=== PATIENT | female | born 1985 | race Caucasian/White ===

== ENCOUNTER 2016-10-28 15:33 | Inpatient (IN) | payer OTHER ==
[~2016-10-28] VITALS: Ht 170.2 cm; Wt 67.6 kg
[2016-10-28 15:40] VITALS: BP 138/82
--- NOTE | 2016-10-28 16:04 | NUR ---
Patient ambulated back to lobby from XRAY with tech.
--- NOTE | 2016-10-28 16:28 | NUR ---
PATIENT PRESENTS TO ED WITH PT PRESENTS TO ER W/C/O CHEST PAIN X3 HOURS.DENIES N/V/D; SKIN IS PINK/WARM/DRY; AAOX4 WITH EVEN AND STEADY GAIT; LUNGS CLEAR BL; HR EVEN AND REGULAR; PT DENIES ANY FEVER, SOB, OR COUGH AT THIS TIME; PATIENT STATES PAIN OF 8/10 AT THIS TIME; VSS; PATIENT POSITIONED FOR COMFORT; HOB ELEVATED; BEDRAILS UP X2; BED DOWN. ER MD MADE AWARE OF PT STATUS.
--- NOTE | 2016-10-28 16:35 | NUR ---
Patient ambulated to bed 07.
--- NOTE | 2016-10-28 16:46 | NUR ---
Dr. Sadler evaluaitng patient at bedside.
[2016-10-28] MEDS ORDERED: KETOROLAC 30 MG/ML VIAL IVP ONE (16:55)
[2016-10-28] MEDS ORDERED: NACL 0.9% 1,000 ML IV ONE (16:55)
[2016-10-28] MEDS ORDERED: LORazepam 2 MG/ML VIAL IVP ONE (16:55)
[2016-10-28] MEDS ORDERED: ASPIRIN 81 MG TAB.CHEW PO ONE (16:55)
[2016-10-28] MEDS ORDERED: ENOXAPARIN 80 MG/0.8 ML SYR SUBQ ONE (17:45)
[2016-10-28] MEDS ORDERED: METOPROLOL 25 MG TAB PO ONE (17:55)
[2016-10-28] MEDS ORDERED: NITROGLYCERIN 2% 1 GM PKT TP ONE (17:55)
--- NOTE | 2016-10-28 18:45 | NUR ---
REPORT GIVEN TO WALLACE ALANIS
--- NOTE | 2016-10-28 19:00 | NUR ---
Patient will be admitted to care of MEGAN. Admited to TELE. Will go to room 119B. Belongings list completed. Report to WALLACE SHERMAN.
[2016-10-28 19:10] VITALS: BP 125/64
--- NOTE | 2016-10-28 19:10 | NUR ---
ADMITTED A 31F FROM ER . CAME BY NUNO DUE TO CHEST PAIN. CAME WITH 2 FAMILY MEMBERS. PT IS ON TELE MONITOR.-SR. ASLEEP BUT IF AWAKE WHEN NAME CALLED. NO ACUTE DISTRESS NOTED. WITH HL ON THE RT AC# 20, CLEAR AND PATENT. UNABLE TO DISCUSSED TO PT ANY PLAN OF CARE. FOR SHE SEEMS VERY DROWSY. SKIN INTACT. SIDE RAILS UP X2. CALL LIGHT PLACED WITHIN EASY REACH. WILL FOLLOW UP ADMITTING ORDERS.
[2016-10-28] MEDS ORDERED: ACETAMINOPHEN 325 MG TAB PO PRN (19:20)
[2016-10-28] MEDS ORDERED: MORPHINE SULFATE 2 MG/ML SYR IVP PRN (19:20)
[2016-10-28] MEDS ORDERED: ONDANSETRON 4 MG/2 ML VIAL IVP PRN (19:20)
[2016-10-28] MEDS: NACL 0.9% 1,000 ML IV SCH (20:15)
[2016-10-28] MEDS ORDERED: HEPARIN PER PHARMACY MC PRN (20:15)
--- NOTE | 2016-10-28 22:00 | NUR ---
STARTED A NEW IV ACCESS ON THE LT HAND #22. .CLEAR AND PATENT.
--- NOTE | 2016-10-28 22:51 | NUR ---
ABLE TO GET MEDICAL INFORMATION TO PT , SHE IS MORE AWAKE AND ALERT . HEPARIN DRIP STARTED ORDERED AFTER BOLUS IVP GIVEN. WILL CONTINUE TO MONITOR. PT WAS MADE AWARE BEFORE MED WAS STARTED.
[2016-10-28] MEDS: hePARIN / DEXT 5% PREMIX 250 ML IV SCH (22:57)
--- NOTE | 2016-10-28 23:12 | NUR ---
PAGED DR. GUZMAN FOR EPISODES OF HR LOW 43/MIN. CALLED BACK AND MADE AWARE. NO ORDER MADE. ALSO SHE SAID OK TO HOLD THE LOPRESSOR TONIGHT.
[2016-10-28] MEDS: METOPROLOL 25 MG TAB PO SCH (23:22)
[2016-10-29 00:45] VITALS: BP 103/56
--- NOTE | 2016-10-29 02:13 | NUR ---
BLOOD WAS DRAWN @ 0100 FOR TROPONIN LEVEL, RESULT TRENDING DOWN 0.151
[2016-10-29 04:30] VITALS: BP 108/56
--- NOTE | 2016-10-29 05:42 | NUR ---
LAB CALLED FOR CRITICAL PTT RESULT 76.7 . HEPARIN DRIP TITRATE TO DECREASE RATE TO 100 UNITS PER HR PER PROTOCOL. NEXT APTT TO ORDER
[2016-10-29] MEDS: hePARIN / DEXT 5% PREMIX 250 ML IV SCH (05:50)
[2016-10-29] MEDS: NACL 0.9% 1,000 ML IV SCH (06:47)
--- NOTE | 2016-10-29 06:50 | NUR ---
PT HAD SOME PUDDING AND JUICE.
--- NOTE | 2016-10-29 07:20 | NUR ---
ENDORSED PT IN STABLE CONDITION TO AM NURSE.
--- NOTE | 2016-10-29 07:30 | NUR ---
RECEIVED ON BED AAOX4. NO SOB NOTED. NO C/O PAIN AT THIS TIME. IV TO LT HAND AND RT AC PATENT AND INTACT. HEPARIN DRIP ON GOING AT 1100 UNITS/HR(11 ML/HR). WILL MONITOR FOR SIGNS OF BLEEDING. CHEST DIMINISHED AIR ENTRY TO THE BASES. ABDOMEN SOFT, BOWEL SOUNDS PRESENT. INSTRUCTED PT TO CALL FOR ASSISTANCE, CALL LIGHT WITHIN REACH. PT VERBALIZED UNDERSTANDING.
[2016-10-29 08:00] VITALS: BP 124/78
[2016-10-29] MEDS ORDERED: ASPIRIN 81 MG TAB.CHEW PO SCH (09:00)
[2016-10-29] MEDS ORDERED: LISINOPRIL 10 MG TAB PO SCH (09:00)
[2016-10-29] MEDS ORDERED: ATORVASTATIN 20 MG TAB PO SCH (09:00)
--- NOTE | 2016-10-29 09:20 | NUR ---
PATIENT HAS BEEN SCREENED AND CATEGORIZED MODERATE NUTRITION RISK. PATIENT WILL BE SEEN WITHIN 3-5 DAYS OF ADMISSION. 10/31/16-11/02/[address]
[2016-10-29] MEDS: METOPROLOL 25 MG TAB PO SCH (09:24)
--- NOTE | 2016-10-29 10:33 | NUR ---
FAXED INITIAL REVIEW TO [facility] [phone] PHONE [phone]
[2016-10-29 12:00] VITALS: BP 116/61
--- NOTE | 2016-10-29 12:02 | NUR ---
[employer]W RODMAN KELLEY CALLED, PT'S STATUS UP DATE GIVEN. AWAITING FOR ROOM AVAILABILITY AT [facility] OR [facility].
--- NOTE | 2016-10-29 12:21 | NUR ---
SPOKE EARLIER WITH RAJAN SWENSON AT [facility]. I FAXED HER THE ORDER FOR TRANSFER TO [facility]. PHONE [phone].
--- NOTE | 2016-10-29 12:25 | NUR ---
PT CONSUMED 100% OF BREAKFAST AND LUNCH. PT TOLERATED WELL.
--- NOTE | 2016-10-29 13:10 | NUR ---
L[facility]IN FROM [facility] BROUGHT ALL THE PT'S BELONGINGS FROM THE FACILITY. Addendum: 10/29/16 at 1545 by Paz Walker RN DISREGARD ABOVE NOTES. WRONG TIME.
[2016-10-29] MEDS ORDERED: NICOTINE TRANSD SYS 21 MG/24 HR PATCH TD SCH (13:20)
[2016-10-29] MEDS ORDERED: LOPRESSOR25 MG PO (13:26)
[2016-10-29] MEDS ORDERED: LISINOPRIL10 M1 PO (13:26)
[2016-10-29] MEDS ORDERED: ASPIRIN ADULT L81 M1 PO (13:26)
[2016-10-29] MEDS ORDERED: [UNRECOGNIZED DRUG - OTHER] TD (13:26)
[2016-10-29] MEDS ORDERED: NITROSTAT0.4 M1 SL (13:26)
[2016-10-29] MEDS ORDERED: ATORVASTATIN CA20 MG PO (13:26)
[2016-10-29 14:17] VITALS: BP 120/72
--- NOTE | 2016-10-29 14:30 | NUR ---
RECEIVED A CALL FROM QUIN DIRECTOR OF ORTHOPEDICS FROM [facility]. THE PATIENT WILL BE PICKED UP AT 3P.M. WITH NURSE. SHE WILL GO TO [facility] UNDER [address]. ANSARI. SHE WILL GO TO ROOM 4108A. PHONE [phone]. QUIN SAID SHE WOULD TELL THE NURSE ON THE FLOOR. CLEMENTE GONSALEZPORCELAIN BUILDUP ASSISTANT NURSE AWARE.
--- NOTE | 2016-10-29 14:45 | NUR ---
LEFT A VOICE MESSAGE TO PT'S FATHER MAITE ([phone]) THAT PT IS GOING TO [facility].
--- NOTE | 2016-10-29 15:00 | NUR ---
REPORT GIVEN TO OZZY AT [facility]. PT IS GOING TO ROOM 4101-A
--- NOTE | 2016-10-29 15:10 | NUR ---
L[facility]IN FROM [facility] BROUGHT ALL THE PT'S BELONGINGS FROM THE FACILITY.
--- NOTE | 2016-10-29 15:30 | NUR ---
PT SIGNED TRANSFER REQUEST AND DISCHARGE PAPERS. INSTRUCTIONS GIVEN, PT VERBALIZED UNDERSTANDING. [facility] HERE TO SALES OPERATIONS PT. REPORT GIVEN RO KAY-RN. IV TO RT AC [place]PL[place]. HEPARIN DRIP ON GOING TO IV ON LT HAND. PT WHEELED OUT IN STABLE CONDITION. NO SOB NOTED. NO C/O PAIN. PT IS TRANSFERRED TO CONTRACTED FACILITY VIA [facility].
== END 2016-10-29 15:30 | disposition short-term general hospital (02) | DRG 198 ==
LOC: MED 15:33 → MTU 18:52
PROVIDERS: ADMIT Student in an Organized Health Care Education/Training Program; ATTEND Student in an Organized Health Care Education/Training Program
DX: I24.8 Other forms of acute ischemic heart disease (principal); F32.9 Major depressive disorder, single episode, unspecified; F15.90 Other stimulant use, unspecified, uncomplicated; F17.210 Nicotine dependence, cigarettes, uncomplicated; F12.90 Cannabis use, unspecified, uncomplicated; F14.90 Cocaine use, unspecified, uncomplicated; Z88.2 Allergy status to sulfonamides; Z90.49 Acquired absence of other specified parts of digestive tract; Z87.442 Personal history of urinary calculi